=== PATIENT | female | born 1975 | race African-American/Black ===

== ENCOUNTER 2023-01-18 11:39 | Emergency (ER) | payer MEDICARE, MEDICAID, SELFPAY ==
--- NOTE | 2023-01-18 11:52 | ED.URI ---
HPI - URI/Sore Throat General Chief Complaint: Upper Respiratory Infection Stated Complaint: URI / Nausea Source: patient and RN notes reviewed History of Present Illness HPI Narrative: 47 yo F presents to urgent care with complaints of nausea x 5 days. Pt states she hasn't felt like this since she was last 28 years ago. Pt has had a uterine ablation and does not have periods. Pt denies any abdominal pain, vomiting, diarrhea, dysuria, chest pain, SOB, or any URI symptoms. Related Data Home Medications Medication Instructions Recorded Confirmed albuterol sulfate 90 mcg/actuation 2 puff inhalation QID PRN sob 01/18/23 01/18/23 aerosol inhaler (Ventolin HFA) alprazolam 1 mg tablet 1 mg PO BID PRN Anxiety 01/18/23 01/18/23 alprazolam 1 mg tablet mg 01/18/23 atenolol 50 mg tablet 50 mg PO DAILY 01/18/23 01/18/23 atenolol 50 mg-chlorthalidone 25 1 tablet PO DAILY 01/18/23 01/18/23 mg tablet atorvastatin 20 mg tablet 20 mg PO DAILY 01/18/23 01/18/23 budesonide-formoterol HFA 160 2 puff inhalation DAILY 01/18/23 01/18/23 mcg-4.5 mcg/actuation aerosol inhaler bupropion HCl 150 mg 24 hr tablet, 150 mg PO DAILY 01/18/23 01/18/23 extended release duloxetine 30 mg capsule,delayed 30 mg PO DAILY 01/18/23 01/18/23 release famotidine 20 mg tablet 20 mg PO DAILY 01/18/23 01/18/23 fexofenadine 180 mg tablet 180 mg PO DAILY 01/18/23 01/18/23 furosemide 20 mg tablet 20 mg PO DAILY 01/18/23 01/18/23 gabapentin 300 mg capsule 300 mg PO TID 01/18/23 01/18/23 insulin aspart U-100 100 unit/mL subcut 01/18/23 (3 mL) subcutaneous pen insulin glargine 100 unit/mL (3 unit subcut 01/18/23 mL) subcutaneous pen loratadine 10 mg tablet 10 mg PO DAILY 01/18/23 01/18/23 metformin 500 mg tablet mg 01/18/23 potassium chloride 10 mEq 10 meq PO DAILY 01/18/23 01/18/23 tablet,extended release semaglutide 0.25 mg or 0.5 mg (2 mg subcut 01/18/23 mg/3 mL) subcutaneous pen injector (Ozempic) tizanidine 4 mg tablet 4 mg PO DAILY 01/18/23 01/18/23 Allergies Allergy/AdvReac Type Severity Reaction Status Date / Time No Known Allergies Allergy Unknown Verified 01/18/23 12:03 Review of Systems Review of Systems: Pertinent positives and pertinent negatives per HPI. PMFSH Comments At the time of my signature, I reviewed and agree with the nursing past medical, surgical, social, and family history. There is no relevant family history pertinent to the patient complaint. Exam Narrative: GENERAL: This is a well-nourished, well-developed patient, in no apparent distress. HEAD: normocephalic, atraumatic. EYES: Sclera clear/white. Vision is grossly intact. EARS: External ears normal, auditory canals clear and without drainage. Hearing grossly intact. NOSE: External nose normal with no obvious nasal discharge, nares without redness, no rhinorrhea. THROAT: Mucous membranes moist, posterior pharynx clear. NECK: Neck supple, non-tender without lymphadenopathy, masses or thyromegaly. CARDIOVASCULAR: Regular rate and rhythm without murmurs, gallops, or rubs. RESPIRATORY: Clear to auscultation. Breath sounds equal bilaterally. No wheezes, rales, or rhonchi. GASTROINTESTINAL: Abdomen soft, non-tender, nondistended. Bowel sounds are active. No hepato-splenomegaly, or palpable masses. No guarding. SKIN: warm, intact with no suspicious lesions or rash, good texture and turgor. NEURO: awake, alert, and oriented to person, place and time. There were no obvious focal neurologic abnormalities. EXTREMITIES: No clubbing, cyanosis, or edema. No joint tenderness, effusion, or edema noted. BACK: Nontender without deformity or crepitus. No flank tenderness. Course Course Level of Care: Express Care Visit Vital Signs Vital signs: Vital Signs Temperature 97.7 F 01/18/23 11:56 Pulse Rate 87 01/18/23 11:56 Respiratory Rate 16 01/18/23 11:56 Blood Pressure 139/82 01/18/23 11:56 Pulse Oximetry 99 01/18/23 11:56 Oxyg
[2023-01-18 11:56] VITALS: BP 139/82; PULSE 87; RESP 16; TEMP 36.5; O2SAT 99
== END 2023-01-18 12:57 | disposition home or self-care (01) ==
PROVIDERS: Emergency Provider Nurse Practitioner Family
DX: R11.0 Nausea (principal)
CPT/HCPCS: 81025; 99212; G0463